=== PATIENT | male | born 1935 | race Caucasian/White ===

== ENCOUNTER → 2020-03-15 | Outpatient (CLI) | payer OTHER, MEDICARE ==
[~2020-03-15] MED LIST: ACETAMINOPHEN-1 EAC1 PO; ASPIR 8181 MG PO; CARDIZEM CD120 MG PO; DEMADEX20 MG PO; FLECAINIDE ACE100 MG PO; FLOMAX0.4 MG PO; KLOR-CON 1010 MEQ PO; LASIX 40 MG TAB40 M2 PO; LISINOPRIL20 MG PO; LOPRESSOR50 PO; METFORMIN HCL500 MG PO; OMEGA-31000 M1 PO; OMEPRAZOLE 20 M20 M1 PO; POTASSIUM20 PO; SIMVASTATIN40 MG PO; SORINE 80 MG TA80 M1 PO; XARELTO20 MG PO
== END ==
LOC: M.WC 10:00
PROVIDERS: ATTEND Surgery
DX: S81.801A Unspecified open wound, right lower leg, initial encounter (principal); C44.712 Basal cell carcinoma of skin of right lower limb, including hip; I89.0 Lymphedema, not elsewhere classified; I10 Essential (primary) hypertension; E11.9 Type 2 diabetes mellitus without complications; E78.00 Pure hypercholesterolemia, unspecified; Z85.828 Personal history of other malignant neoplasm of skin; Z95.0 Presence of cardiac pacemaker; Z87.891 Personal history of nicotine dependence; X58.XXXA Exposure to other specified factors, initial encounter; Y93.89 Activity, other specified; Y92.89 Other specified places as the place of occurrence of the external cause; Y99.8 Other external cause status

== ENCOUNTER → 2020-03-22 | Outpatient (CLI) | payer OTHER, MEDICARE | LOC: M.WC 03:23 | PROVIDERS: ATTEND Surgery | DX: S81.801D Unspecified open wound, right lower leg, subsequent encounter (principal); C44.712 Basal cell carcinoma of skin of right lower limb, including hip; I89.0 Lymphedema, not elsewhere classified; E11.9 Type 2 diabetes mellitus without complications; E78.00 Pure hypercholesterolemia, unspecified; I10 Essential (primary) hypertension; Z87.891 Personal history of nicotine dependence; Z85.828 Personal history of other malignant neoplasm of skin; X58.XXXD Exposure to other specified factors, subsequent encounter ==

== ENCOUNTER → 2020-03-29 | Outpatient (CLI) | payer OTHER, MEDICARE | LOC: M.WC 03:30 | PROVIDERS: ATTEND Surgery | DX: S81.801D Unspecified open wound, right lower leg, subsequent encounter (principal); C44.712 Basal cell carcinoma of skin of right lower limb, including hip; I89.0 Lymphedema, not elsewhere classified; I10 Essential (primary) hypertension; E11.9 Type 2 diabetes mellitus without complications; E78.00 Pure hypercholesterolemia, unspecified; Z87.891 Personal history of nicotine dependence; Z85.828 Personal history of other malignant neoplasm of skin ==

== ENCOUNTER → 2020-04-05 | Outpatient (CLI) | payer OTHER, MEDICARE | LOC: M.WC 05:56 | PROVIDERS: ATTEND Surgery | DX: S81.801D Unspecified open wound, right lower leg, subsequent encounter (principal); C44.712 Basal cell carcinoma of skin of right lower limb, including hip; I89.0 Lymphedema, not elsewhere classified; I87.2 Venous insufficiency (chronic) (peripheral); E11.9 Type 2 diabetes mellitus without complications; E78.00 Pure hypercholesterolemia, unspecified; I10 Essential (primary) hypertension; Z85.828 Personal history of other malignant neoplasm of skin; Z87.891 Personal history of nicotine dependence; X58.XXXD Exposure to other specified factors, subsequent encounter ==

== ENCOUNTER → 2020-04-12 | Outpatient (CLI) | payer OTHER, MEDICARE | LOC: M.WC 03:52 | PROVIDERS: ATTEND Surgery | DX: S81.801D Unspecified open wound, right lower leg, subsequent encounter (principal); C44.712 Basal cell carcinoma of skin of right lower limb, including hip; E11.9 Type 2 diabetes mellitus without complications; I87.2 Venous insufficiency (chronic) (peripheral); I89.0 Lymphedema, not elsewhere classified; I10 Essential (primary) hypertension; E78.00 Pure hypercholesterolemia, unspecified; Z87.891 Personal history of nicotine dependence; Z85.828 Personal history of other malignant neoplasm of skin ==

== ENCOUNTER → 2020-04-19 | Outpatient (CLI) | payer OTHER, MEDICARE | LOC: M.WC 05:20 | PROVIDERS: ATTEND Surgery | DX: S81.801D Unspecified open wound, right lower leg, subsequent encounter (principal); C44.712 Basal cell carcinoma of skin of right lower limb, including hip; I89.0 Lymphedema, not elsewhere classified; E11.9 Type 2 diabetes mellitus without complications; E78.00 Pure hypercholesterolemia, unspecified; I10 Essential (primary) hypertension; Z87.891 Personal history of nicotine dependence; Z85.828 Personal history of other malignant neoplasm of skin; X58.XXXD Exposure to other specified factors, subsequent encounter ==

== ENCOUNTER → 2020-04-26 | Outpatient (CLI) | payer OTHER, MEDICARE | LOC: M.WC 05:08 | PROVIDERS: ATTEND Surgery | DX: S81.801D Unspecified open wound, right lower leg, subsequent encounter (principal); C44.712 Basal cell carcinoma of skin of right lower limb, including hip; I89.0 Lymphedema, not elsewhere classified; E11.9 Type 2 diabetes mellitus without complications; E78.00 Pure hypercholesterolemia, unspecified; I10 Essential (primary) hypertension; I87.2 Venous insufficiency (chronic) (peripheral); Z85.828 Personal history of other malignant neoplasm of skin; Z87.891 Personal history of nicotine dependence; X58.XXXD Exposure to other specified factors, subsequent encounter ==

== ENCOUNTER → 2020-05-03 | Outpatient (CLI) | payer MEDICARE | LOC: M.WC 04:12 | PROVIDERS: ATTEND Surgery | DX: S81.801D Unspecified open wound, right lower leg, subsequent encounter (principal); C44.712 Basal cell carcinoma of skin of right lower limb, including hip; E11.9 Type 2 diabetes mellitus without complications; E78.00 Pure hypercholesterolemia, unspecified; I89.0 Lymphedema, not elsewhere classified; I10 Essential (primary) hypertension; I87.2 Venous insufficiency (chronic) (peripheral); Z87.891 Personal history of nicotine dependence; X58.XXXD Exposure to other specified factors, subsequent encounter ==

== ENCOUNTER → 2020-05-10 | Outpatient (CLI) | payer MEDICARE ==
[2020-05-10 10:57] LABS: CALCIUM 8.8 mg/dL (8.5-10.1); CREATININE 1.2 mg/dL (0.6-1.3); POTASSIUM 4.7 mmol/L (3.5-5.1)
== END ==
LOC: M.WC 04:33
PROVIDERS: ATTEND Surgery
DX: S81.801D Unspecified open wound, right lower leg, subsequent encounter (principal); C44.712 Basal cell carcinoma of skin of right lower limb, including hip; E11.9 Type 2 diabetes mellitus without complications; E78.00 Pure hypercholesterolemia, unspecified; I10 Essential (primary) hypertension; I89.0 Lymphedema, not elsewhere classified; I87.2 Venous insufficiency (chronic) (peripheral); Z87.891 Personal history of nicotine dependence; X58.XXXD Exposure to other specified factors, subsequent encounter

== ENCOUNTER → 2020-05-17 | Outpatient (CLI) | payer OTHER, MEDICARE | LOC: M.WC 03:55 | PROVIDERS: ATTEND Surgery | DX: S81.801D Unspecified open wound, right lower leg, subsequent encounter (principal); C44.712 Basal cell carcinoma of skin of right lower limb, including hip; I89.0 Lymphedema, not elsewhere classified; I10 Essential (primary) hypertension; E11.9 Type 2 diabetes mellitus without complications; E78.00 Pure hypercholesterolemia, unspecified; Z85.828 Personal history of other malignant neoplasm of skin; Z87.891 Personal history of nicotine dependence; X58.XXXD Exposure to other specified factors, subsequent encounter ==

== ENCOUNTER → 2020-05-25 | Outpatient (CLI) | payer MEDICARE | LOC: M.WC 05:08 | PROVIDERS: ATTEND Family Medicine | DX: S81.801D Unspecified open wound, right lower leg, subsequent encounter (principal); C44.712 Basal cell carcinoma of skin of right lower limb, including hip; I89.0 Lymphedema, not elsewhere classified; E11.9 Type 2 diabetes mellitus without complications; E78.00 Pure hypercholesterolemia, unspecified; I10 Essential (primary) hypertension; Z87.891 Personal history of nicotine dependence; Z85.828 Personal history of other malignant neoplasm of skin ==

== ENCOUNTER → 2020-06-01 | Outpatient (CLI) | payer MEDICARE | LOC: M.WC 04:43 | PROVIDERS: ATTEND Family Medicine | DX: S81.801D Unspecified open wound, right lower leg, subsequent encounter (principal); C44.712 Basal cell carcinoma of skin of right lower limb, including hip; E11.9 Type 2 diabetes mellitus without complications; E78.00 Pure hypercholesterolemia, unspecified; I89.0 Lymphedema, not elsewhere classified; I87.2 Venous insufficiency (chronic) (peripheral); I10 Essential (primary) hypertension; Z87.891 Personal history of nicotine dependence; Z85.828 Personal history of other malignant neoplasm of skin; X58.XXXD Exposure to other specified factors, subsequent encounter ==

== ENCOUNTER → 2020-06-09 | Outpatient (CLI) | payer MEDICARE | LOC: M.WC 04:18 | PROVIDERS: ATTEND Family Medicine | DX: S81.801D Unspecified open wound, right lower leg, subsequent encounter (principal); C44.712 Basal cell carcinoma of skin of right lower limb, including hip; I89.0 Lymphedema, not elsewhere classified; E11.9 Type 2 diabetes mellitus without complications; E78.00 Pure hypercholesterolemia, unspecified; I10 Essential (primary) hypertension; Z85.828 Personal history of other malignant neoplasm of skin; X58.XXXD Exposure to other specified factors, subsequent encounter ==

== ENCOUNTER 2021-05-13 21:21 | Emergency (ER) | payer OTHER, MEDICARE ==
[~2021-05-13] VITALS: Ht 175.3 cm; Wt 98.4 kg
--- NOTE | ~2021-05-13 | EKG ---
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
[2021-05-13] MEDS ORDERED: LISINOPRIL10 MG PO (21:49)
[2021-05-13] MEDS ORDERED: XARELTO20 MG PO (21:49)
[2021-05-13] MEDS ORDERED: HYDROCODON-ACE1 EAC7 PO (21:50)
[2021-05-13] MEDS ORDERED: AMBIEN 5 MG TABL5 M1 PO (21:51)
[2021-05-13] MEDS ORDERED: FLUORESCEIN TOP (21:52)
[2021-05-13 22:13] LABS: ABSOLUTE EOSINOPHILS 0.2 thou/uL (0.0-0.7); ABSOLUTE LYMPHOCYTES 1.6 thou/uL (0.8-5.3); ABSOLUTE MONOCYTES 0.6 thou/uL (0.0-1.2); ABSOLUTE NEUTROPHILS 1.9 thou/uL (1.6-8.1); BASOPHILS 0.7 %; EOSINOPHILS 4.9 %; HEMATOCRIT 36.4 % (42.0-52.0); LYMPHOCYTES 37.1 %; MCH 28.8 pg (26.0-34.0); MCHC 32.9 g/dL (28.0-37.0); MCV 87.6 fL (80.0-100.0); NUCLEATED RBCS 0 /100WBC; PLATELET COUNT* 177 thou/uL (150-400); POLYS 43.3 %; RBC 4.16 mil/uL (4.50-6.00); RDW-CV 14.3 % (10.5-14.5); WBC 4.4 thou/uL (4.0-11.0)
[2021-05-13 22:18] LABS: CALCIUM 8.1 mg/dL (8.5-10.1); CREATININE 1.2 mg/dL (0.6-1.3)
[2021-05-13 22:22] LABS: ALBUMIN 3.4 g/dL (3.4-5.0); TOTAL BILIRUBIN 0.4 mg/dL (<0.1-1.0); TOTAL PROTEIN 6.5 g/dL (6.4-8.2)
[2021-05-14] MEDS ORDERED: KEFLEX250 MG PO (01:19)
[2021-05-14 02:18] VITALS: BP 163/104
--- NOTE | 2021-05-14 10:55 | EKG ---
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
== END 2021-05-14 02:00 | disposition home or self-care (01) ==
LOC: M.ERS 21:21
PROVIDERS: Emergency Medicine
DX: S02.2XXA Fracture of nasal bones, initial encounter for closed fracture (principal); Z20.822 Contact with and (suspected) exposure to COVID-19; M54.2 Cervicalgia; M54.6 Pain in thoracic spine; M54.5 Low back pain; V48.3XXA Unspecified car occupant injured in noncollision transport accident in nontraffic accident, initial encounter; Y93.89 Activity, other specified; Y92.488 Other paved roadways as the place of occurrence of the external cause; Y99.8 Other external cause status